=== PATIENT | female | born 1960 | race Two or more races ===

== ENCOUNTER 2017-11-23 19:16 | Inpatient (IN) | payer BC ==
[~2017-11-23] VITALS: Ht 157.5 cm; Wt 81.7 kg
[2017-11-23] MEDS ORDERED: SODIUM CHLORIDE FLUSH 10ML SYR IVF ONE (20:00)
[2017-11-23] MEDS ORDERED: OMNIPAQUE 350 MG/ML, 100ML BOTTLE ONE (20:00)
[2017-11-23 20:25] LABS: MICROSCOPIC AUTO
[2017-11-23 20:31] LABS: CULTURE INDICATED? YES
[2017-11-23 21:51] LABS: BASOPHILS # (AUTO) 0.03 x10^3/uL (0-0.1); BASOPHILS % (AUTO) 0 % (0-1); EOSINOPHILS # (AUTO) 0.11 x10^3/uL (0-0.4); EOSINOPHILS % (AUTO) 1 % (1-7); LYMPHOCYTES # (AUTO) 1.47 x10^3/uL (1-3.4); LYMPHOCYTES % (AUTO) 20 % (22-44); MD NO; MEAN CORPUSCULAR HEMOGLOBIN 28.7 pg (27.0-34.8); MEAN CORPUSCULAR HGB CONC 33.1 g/dL (32.4-35.8); MEAN CORPUSCULAR VOLUME 86.9 fL (80-100); MEAN PLATELET VOLUME 8.6 fL (7.4-10.4); MONOCYTES % (AUTO) 8 % (2-9); NEUTROPHILS # (AUTO) 5.29 x10^3/uL (1.8-6.8); NEUTROPHILS % (AUTO) 71 % (42-75); PLATELET COUNT 343 x10^3/uL (130-400); RED BLOOD COUNT 5.14 x10^6/uL (3.82-5.3); RED CELL DISTRIBUTION WIDTH 13.9 % (9.6-15.2)
[2017-11-23 22:00] LABS: ALBUMIN 3.2 g/dL (3.4-5.0); ANION GAP 8 mmol/L (5-15); CALCIUM 8.3 mg/dL (8.5-10.1); CHLORIDE 104 mmol/L (98-107)
[2017-11-23 22:04] LABS: ALANINE AMINOTRANSFERASE 27 U/L (12-78); ALKALINE PHOSPHATASE 107 U/L (45-117); BILIRUBIN,TOTAL 0.4 mg/dL (0.2-1.0); CREATININE 0.49 mg/dL (0.55-1.02); TOTAL PROTEIN 8.1 g/dL (6.4-8.2)
[2017-11-24 00:25] VITALS: BP 192/93
[2017-11-24] MEDS ORDERED: BISACODYL 10 MG SUPP PR PRN (00:30)
[2017-11-24] MEDS ORDERED: ACETAMINOPHEN 325 MG TABLET PO PRN (00:30)
[2017-11-24] MEDS ORDERED: ONDANSETRON ODT 4 MG PO PRN (00:30)
[2017-11-24] MEDS ORDERED: SIMETHICONE DROPS 40 MG/0.6 ML BOTTLE PO PRN (00:30)
[2017-11-24] MEDS ORDERED: TEMAZEPAM 15 MG CAPSULE PO PRN (00:30)
[2017-11-24] MEDS: ENALAPRILAT 1.25 MG/ML, 2ML IVPush PRN ×2 (00:57→08:50)
[2017-11-24 08:19] VITALS: BP 185/100
[2017-11-24] MEDS ORDERED: hydrALAzine 20 MG/ML, 1ML IV PRN (09:30)
[2017-11-24] MEDS: LISINOPRIL 10 MG TABLET PO SCH (10:36)
[2017-11-24 11:57] VITALS: BP 142/83
[2017-11-24 20:02] VITALS: BP 146/85
[2017-11-24] MEDS ORDERED: GOLYTELY 4,000ML ORAL.SOL PO ONE (21:30)
[2017-11-25 04:13] VITALS: BP 149/72
[2017-11-25 05:22] LABS: BASOPHILS # (AUTO) 0.02 x10^3/uL (0-0.1); BASOPHILS % (AUTO) 0 % (0-1); EOSINOPHILS # (AUTO) 0.03 x10^3/uL (0-0.4); EOSINOPHILS % (AUTO) 0 % (1-7); LYMPHOCYTES # (AUTO) 1.03 x10^3/uL (1-3.4); LYMPHOCYTES % (AUTO) 15 % (22-44); MD NO; MEAN CORPUSCULAR HEMOGLOBIN 28.6 pg (27.0-34.8); MEAN CORPUSCULAR HGB CONC 33.5 g/dL (32.4-35.8); MEAN CORPUSCULAR VOLUME 85.5 fL (80-100); MEAN PLATELET VOLUME 8.4 fL (7.4-10.4); MONOCYTES # (AUTO) 0.52 x10^3/uL (0.2-0.8); MONOCYTES % (AUTO) 7 % (2-9); NEUTROPHILS # (AUTO) 5.48 x10^3/uL (1.8-6.8); NEUTROPHILS % (AUTO) 77 % (42-75); PLATELET COUNT 308 x10^3/uL (130-400); RED BLOOD COUNT 4.94 x10^6/uL (3.82-5.3); RED CELL DISTRIBUTION WIDTH 14.2 % (9.6-15.2)
[2017-11-25 05:38] LABS: ANION GAP 7 mmol/L (5-15); CALCIUM 8.5 mg/dL (8.5-10.1); CHLORIDE 108 mmol/L (98-107)
[2017-11-25 05:46] LABS: CREATININE 0.36 mg/dL (0.55-1.02)
[2017-11-25 07:28] VITALS: BP 146/78
[2017-11-25] MEDS: LISINOPRIL 10 MG TABLET PO SCH (07:39)
[2017-11-25] MEDS ORDERED: FENTANYL PF 100 MCG/2ML IV PRN (08:30)
[2017-11-25] MEDS ORDERED: ACETAMINOPHEN 325 MG TABLET PO PRN (08:30)
[2017-11-25] MEDS ORDERED: hydrALAzine 20 MG/ML, 1ML IV PRN (08:30)
[2017-11-25] MEDS ORDERED: LABETALOL 5MG/ML, 20ML IV PRN (08:30)
[2017-11-25] MEDS ORDERED: ONDANSETRON 2MG/ML, 2ML IVPush PRN (08:30)
[2017-11-25] MEDS ORDERED: OXYcodone 5 MG/5 ML ORAL.SOL UDC PO PRN (08:30)
[2017-11-25] MEDS ORDERED: ALBUTEROL SULFATE 2.5 MG/3 ML NPPB PRN (08:30)
[2017-11-25] MEDS ORDERED: MEPERIDINE/PF 25MG/0.5ML IVPush PRN (08:30)
[2017-11-25] MEDS ORDERED: PROMETHAZINE 25 MG/ML, 1ML IV PRN (08:30)
[2017-11-25] MEDS ORDERED: MIDAZOLAM 1 MG/ML, 2ML ONE (11:30)
[2017-11-25] MEDS ORDERED: SUFentanil 50 MCG/ML, 1ML ONE (11:30)
[2017-11-25] MEDS ORDERED: PROPOFOL 10 MG/ML, 20ML ONE (11:31)
[2017-11-25] MEDS ORDERED: LIDOCAINE-MPF 2% ,5ML ONE (11:32)
[2017-11-25] MEDS ORDERED: KETAMINE 10 MG/ML, 20ML ONE (11:51)
[2017-11-25] MEDS ORDERED: PHENYLEPHRINE 10 MG/ML ONE (11:51)
[2017-11-25] MEDS ORDERED: GLYCOPYRROLATE 0.2MG/1ML, 5ML ONE ×2 (11:51→14:45)
[2017-11-25] MEDS ORDERED: ROCURONIUM 10MG/ML,5ML ONE (11:51)
[2017-11-25] MEDS ORDERED: MIDAZOLAM 1 MG/ML, 5ML ONE (11:51)
[2017-11-25] MEDS ORDERED: NEOSTIGMINE 1 MG/ML, 10ML ONE ×2 (11:51→14:45)
[2017-11-25] MEDS ORDERED: DEXAMETHASONE 4 MG/ML, 1ML ONE ×2 (12:22)
[2017-11-25] MEDS ORDERED: LABETALOL 5MG/ML, 20ML ONE (12:52)
[2017-11-25] MEDS ORDERED: HYDROmorphone 2 MG/ML, 1ML ONE (14:17)
[2017-11-25] MEDS ORDERED: FENTANYL PF 100 MCG/2ML ONE (14:17)
[2017-11-25] MEDS ORDERED: ONDANSETRON 2MG/ML, 2ML ONE ×2 (14:18)
[2017-11-25] MEDS: HYDROmorphone 1 MG/ML, 1ML IV PRN ×3 (15:20→15:40)
[2017-11-25] MEDS ORDERED: LORazepam 2 MG/ML, 1ML ONE (15:47)
[2017-11-25] MEDS ORDERED: hydrALAzine 20 MG/ML, 1ML ONE (15:59)
[2017-11-25] MEDS ORDERED: LORazepam 2 MG/ML, 1ML IVPush PRN (16:00)
[2017-11-25 17:00] VITALS: BP 159/82
[2017-11-25] MEDS ORDERED: ONDANSETRON 2MG/ML, 2ML IV PRN (18:00)
[2017-11-25] MEDS ORDERED: ACETAMINOPHEN 500 MG TABLET PO PRN (18:30)
[2017-11-25 19:17] VITALS: BP 151/82
[2017-11-25] MEDS: POTASSIUM CHLORIDE 20 MEQ in D5%-0.45% NACL 1,000 ML IV SCH (19:40)
[2017-11-25] MEDS: FAMOTIDINE 20 MG/2 ML IV SCH (19:51)
[2017-11-25] MEDS: ALBUMIN HUMAN 5% 500 ML IV SCH (20:16)
[2017-11-25] MEDS ORDERED: MORPHINE SULFATE 4 MG/ML, 1ML IV PRN (22:00)
[2017-11-26] MEDS: POTASSIUM CHLORIDE 20 MEQ in D5%-0.45% NACL 1,000 ML IV SCH ×5 (00:33→23:33)
[2017-11-26 01:53] VITALS: BP 147/78
[2017-11-26 05:17] LABS: BASOPHILS % (AUTO) 0 % (0-1); EOSINOPHILS % (AUTO) 0 % (1-7); LYMPHOCYTES # (AUTO) 0.78 x10^3/uL (1-3.4); LYMPHOCYTES % (AUTO) 7 % (22-44); MD NO; MEAN CORPUSCULAR HEMOGLOBIN 28.2 pg (27.0-34.8); MEAN CORPUSCULAR HGB CONC 32.4 g/dL (32.4-35.8); MEAN CORPUSCULAR VOLUME 87.2 fL (80-100); MEAN PLATELET VOLUME 8.7 fL (7.4-10.4); MONOCYTES % (AUTO) 13 % (2-9); NEUTROPHILS # (AUTO) 8.88 x10^3/uL (1.8-6.8); NEUTROPHILS % (AUTO) 80 % (42-75); PLATELET COUNT 252 x10^3/uL (130-400); RED BLOOD COUNT 4.57 x10^6/uL (3.82-5.3); RED CELL DISTRIBUTION WIDTH 14.3 % (9.6-15.2)
[2017-11-26 05:24] LABS: ANION GAP 7 mmol/L (5-15); CALCIUM 7.5 mg/dL (8.5-10.1); CHLORIDE 109 mmol/L (98-107)
[2017-11-26 05:27] LABS: CREATININE 0.42 mg/dL (0.55-1.02)
[2017-11-26 07:20] VITALS: BP 164/87
[2017-11-26] MEDS: LISINOPRIL 10 MG TABLET PO SCH (08:08)
[2017-11-26] MEDS: ALBUMIN HUMAN 5% 500 ML IV SCH ×2 (08:16→21:00)
[2017-11-26] MEDS: FAMOTIDINE 20 MG/2 ML IV SCH ×2 (08:18→20:08)
[2017-11-26] MEDS: ENALAPRILAT 1.25 MG/ML, 2ML IVPush PRN (08:18)
[2017-11-26 12:58] VITALS: BP 158/90
[2017-11-26 20:01] VITALS: BP 139/68
[2017-11-27 01:23] VITALS: BP 126/62
[2017-11-27 04:29] LABS: BASOPHILS # (AUTO) 0.04 x10^3/uL (0-0.1); BASOPHILS % (AUTO) 0 % (0-1); EOSINOPHILS # (AUTO) 0.02 x10^3/uL (0-0.4); EOSINOPHILS % (AUTO) 0 % (1-7); LYMPHOCYTES # (AUTO) 0.96 x10^3/uL (1-3.4); LYMPHOCYTES % (AUTO) 8 % (22-44); MD NO; MEAN CORPUSCULAR HEMOGLOBIN 28.5 pg (27.0-34.8); MEAN CORPUSCULAR HGB CONC 32.8 g/dL (32.4-35.8); MEAN CORPUSCULAR VOLUME 86.9 fL (80-100); MEAN PLATELET VOLUME 8.2 fL (7.4-10.4); MONOCYTES # (AUTO) 1.25 x10^3/uL (0.2-0.8); MONOCYTES % (AUTO) 10 % (2-9); NEUTROPHILS # (AUTO) 9.73 x10^3/uL (1.8-6.8); NEUTROPHILS % (AUTO) 81 % (42-75); PLATELET COUNT 248 x10^3/uL (130-400); RED BLOOD COUNT 4.27 x10^6/uL (3.82-5.3); RED CELL DISTRIBUTION WIDTH 14.4 % (9.6-15.2)
[2017-11-27] MEDS: POTASSIUM CHLORIDE 20 MEQ in D5%-0.45% NACL 1,000 ML IV SCH (04:31)
[2017-11-27] MEDS: ALBUMIN HUMAN 5% 500 ML IV SCH ×2 (04:34→14:00)
[2017-11-27 04:44] LABS: CHLORIDE 109 mmol/L (98-107)
[2017-11-27 04:52] LABS: ANION GAP 7 mmol/L (5-15); CALCIUM 7.7 mg/dL (8.5-10.1); CREATININE 0.28 mg/dL (0.55-1.02)
[2017-11-27 07:02] VITALS: BP 117/74
[2017-11-27] MEDS: LISINOPRIL 10 MG TABLET PO SCH (09:17)
[2017-11-27] MEDS: FAMOTIDINE 20 MG/2 ML IV SCH ×2 (09:17→19:57)
[2017-11-27] MEDS: D5%-0.45NACL+KCL 20MEQ 1,000 ML IV SCH ×2 (09:17→20:19)
[2017-11-27 13:37] VITALS: BP 122/74
[2017-11-27 19:42] VITALS: BP 128/80
[2017-11-28 01:39] VITALS: BP 153/77
[2017-11-28 04:36] LABS: BASOPHILS # (AUTO) 0.05 x10^3/uL (0-0.1); BASOPHILS % (AUTO) 0 % (0-1); EOSINOPHILS # (AUTO) 0.03 x10^3/uL (0-0.4); EOSINOPHILS % (AUTO) 0 % (1-7); LYMPHOCYTES # (AUTO) 1.17 x10^3/uL (1-3.4); LYMPHOCYTES % (AUTO) 11 % (22-44); MD NO; MEAN CORPUSCULAR HEMOGLOBIN 28.7 pg (27.0-34.8); MEAN CORPUSCULAR HGB CONC 33.4 g/dL (32.4-35.8); MEAN CORPUSCULAR VOLUME 85.8 fL (80-100); MEAN PLATELET VOLUME 8.6 fL (7.4-10.4); MONOCYTES # (AUTO) 0.92 x10^3/uL (0.2-0.8); MONOCYTES % (AUTO) 9 % (2-9); NEUTROPHILS # (AUTO) 8.64 x10^3/uL (1.8-6.8); NEUTROPHILS % (AUTO) 80 % (42-75); PLATELET COUNT 236 x10^3/uL (130-400); RED BLOOD COUNT 3.85 x10^6/uL (3.82-5.3); RED CELL DISTRIBUTION WIDTH 14.3 % (9.6-15.2)
[2017-11-28 04:47] LABS: CHLORIDE 107 mmol/L (98-107)
[2017-11-28 04:52] LABS: ALANINE AMINOTRANSFERASE 14 U/L (12-78); ALBUMIN 2.7 g/dL (3.4-5.0); ALKALINE PHOSPHATASE 62 U/L (45-117); ANION GAP 8 mmol/L (5-15); BILIRUBIN,TOTAL 0.7 mg/dL (0.2-1.0); CREATININE 0.23 mg/dL (0.55-1.02); TOTAL PROTEIN 5.8 g/dL (6.4-8.2)
[2017-11-28] MEDS: D5%-0.45NACL+KCL 20MEQ 1,000 ML IV SCH ×2 (06:19→15:34)
[2017-11-28] MEDS: FAMOTIDINE 20 MG/2 ML IV SCH ×2 (08:17→19:54)
[2017-11-28 08:18] VITALS: BP 170/86
[2017-11-28] MEDS: LISINOPRIL 10 MG TABLET PO SCH (08:18)
[2017-11-28 13:37] VITALS: BP 164/81
[2017-11-28 19:44] VITALS: BP 156/78
[2017-11-29] MEDS: D5%-0.45NACL+KCL 20MEQ 1,000 ML IV SCH ×3 (01:15→20:23)
[2017-11-29 01:16] VITALS: BP 165/85
[2017-11-29 04:38] LABS: BASOPHILS # (AUTO) 0.04 x10^3/uL (0-0.1); BASOPHILS % (AUTO) 0 % (0-1); EOSINOPHILS # (AUTO) 0.07 x10^3/uL (0-0.4); EOSINOPHILS % (AUTO) 1 % (1-7); LYMPHOCYTES % (AUTO) 8 % (22-44); MD NO; MEAN CORPUSCULAR HEMOGLOBIN 28.2 pg (27.0-34.8); MEAN CORPUSCULAR HGB CONC 32.9 g/dL (32.4-35.8); MEAN CORPUSCULAR VOLUME 85.7 fL (80-100); MEAN PLATELET VOLUME 8.5 fL (7.4-10.4); MONOCYTES # (AUTO) 0.81 x10^3/uL (0.2-0.8); MONOCYTES % (AUTO) 8 % (2-9); NEUTROPHILS % (AUTO) 83 % (42-75); PLATELET COUNT 274 x10^3/uL (130-400); RED BLOOD COUNT 4.24 x10^6/uL (3.82-5.3); RED CELL DISTRIBUTION WIDTH 14.5 % (9.6-15.2)
[2017-11-29 04:52] LABS: ANION GAP 5 mmol/L (5-15); CHLORIDE 105 mmol/L (98-107)
[2017-11-29 04:53] LABS: CREATININE 0.21 mg/dL (0.55-1.02)
[2017-11-29 07:55] VITALS: BP 160/93
[2017-11-29] MEDS: LISINOPRIL 10 MG TABLET PO SCH (09:18)
[2017-11-29] MEDS: FAMOTIDINE 20 MG/2 ML IV SCH ×2 (09:19→20:23)
[2017-11-29 16:12] VITALS: BP 158/90
[2017-11-29 19:29] VITALS: BP 156/88
[2017-11-30 01:43] VITALS: BP 152/89
[2017-11-30 05:06] LABS: ANION GAP 8 mmol/L (5-15); CALCIUM 7.9 mg/dL (8.5-10.1); CHLORIDE 103 mmol/L (98-107); CREATININE 0.23 mg/dL (0.55-1.02)
[2017-11-30 05:12] LABS: BASOPHILS # (AUTO) 0.01 x10^3/uL (0-0.1); BASOPHILS % (AUTO) 0 % (0-1); EOSINOPHILS # (AUTO) 0.06 x10^3/uL (0-0.4); EOSINOPHILS % (AUTO) 1 % (1-7); LYMPHOCYTES % (AUTO) 8 % (22-44); MD NO; MEAN CORPUSCULAR HEMOGLOBIN 28.5 pg (27.0-34.8); MEAN CORPUSCULAR HGB CONC 33.4 g/dL (32.4-35.8); MEAN CORPUSCULAR VOLUME 85.5 fL (80-100); MEAN PLATELET VOLUME 8.2 fL (7.4-10.4); MONOCYTES # (AUTO) 0.77 x10^3/uL (0.2-0.8); MONOCYTES % (AUTO) 9 % (2-9); NEUTROPHILS # (AUTO) 7.53 x10^3/uL (1.8-6.8); NEUTROPHILS % (AUTO) 83 % (42-75); PLATELET COUNT 275 x10^3/uL (130-400); RED BLOOD COUNT 4.15 x10^6/uL (3.82-5.3); RED CELL DISTRIBUTION WIDTH 14.3 % (9.6-15.2)
[2017-11-30] MEDS: D5%-0.45NACL+KCL 20MEQ 1,000 ML IV SCH ×2 (06:26→17:39)
[2017-11-30 07:50] VITALS: BP 176/93
[2017-11-30] MEDS: LISINOPRIL 10 MG TABLET PO SCH (09:41)
[2017-11-30] MEDS: FAMOTIDINE 20 MG/2 ML IV SCH ×2 (09:41→19:50)
[2017-11-30 13:05] VITALS: BP 150/91
[2017-11-30 19:09] VITALS: BP 146/85
[2017-12-01 01:52] VITALS: BP 153/87
[2017-12-01] MEDS: D5%-0.45NACL+KCL 20MEQ 1,000 ML IV SCH ×2 (03:11→14:43)
[2017-12-01 08:20] VITALS: BP 163/93
[2017-12-01] MEDS: FAMOTIDINE 20 MG/2 ML IV SCH ×2 (08:23→20:02)
[2017-12-01] MEDS: LISINOPRIL 10 MG TABLET PO SCH (08:23)
[2017-12-01 15:23] VITALS: BP 167/92
[2017-12-01 20:00] VITALS: BP 163/77
[2017-12-02] MEDS: D5%-0.45NACL+KCL 20MEQ 1,000 ML IV SCH ×3 (00:14→20:00)
[2017-12-02 02:00] VITALS: BP 171/85
[2017-12-02 07:40] VITALS: BP 150/79
[2017-12-02] MEDS: LISINOPRIL 10 MG TABLET PO SCH ×2 (08:51→13:10)
[2017-12-02] MEDS: FAMOTIDINE 20 MG/2 ML IV SCH ×2 (08:51→20:03)
[2017-12-02] MEDS ORDERED: OXYcodone/APAP 5/325MG TABLET PO PRN (12:00)
[2017-12-02] MEDS ORDERED: IBUPROFEN 200 MG TABLET PO PRN (12:00)
[2017-12-02 12:45] VITALS: BP 154/93
[2017-12-02] MEDS: CALCIUM CARBONATE 500 MG TAB.CHEW PO PRN ×2 (15:54→18:19)
[2017-12-02] MEDS: CEPHALEXIN 500 MG CAPSULE PO SCH ×2 (15:55→20:03)
[2017-12-02 19:51] VITALS: BP 147/88
[2017-12-03 04:19] VITALS: BP 152/91
[2017-12-03] MEDS: D5%-0.45NACL+KCL 20MEQ 1,000 ML IV SCH (06:00)
[2017-12-03] MEDS: CEPHALEXIN 500 MG CAPSULE PO SCH ×3 (06:40→17:15)
[2017-12-03] MEDS: LISINOPRIL 10 MG TABLET PO SCH (08:26)
[2017-12-03] MEDS: FAMOTIDINE 20 MG/2 ML IV SCH (08:26)
[2017-12-03 08:36] VITALS: BP 164/94
[2017-12-03] MEDS ORDERED: OXYC1TAB7 PO (15:05)
[2017-12-03] MEDS ORDERED: LISI-167 PO (15:05)
[2017-12-03] MEDS ORDERED: IBUP-1484 PO (15:05)
[2017-12-03] MEDS ORDERED: CALC200T24 PO (15:05)
[2017-12-03] MEDS ORDERED: CEPH-376 PO (15:05)
== END 2017-12-03 18:08 | disposition home or self-care (01) | DRG 330 ==
LOC: ED 22:02 → EDIP 23:32 → 3NW 11-24 00:25
PROVIDERS: ADMIT Hospitalist; ATTEND Hospitalist
PROC: 0UT00ZZ Resection of Right Ovary, Open Approach (ICD-10-PCS; 2017-11-25)
PROC: 0UT50ZZ Resection of Right Fallopian Tube, Open Approach (ICD-10-PCS; 2017-11-25)
PROC: 0UT90ZZ Resection of Uterus, Open Approach (ICD-10-PCS; 2017-11-25)
PROC: 0DBU0ZZ Excision of Omentum, Open Approach (ICD-10-PCS; 2017-11-25)
PROC: 0DTF0ZZ Resection of Right Large Intestine, Open Approach (ICD-10-PCS; principal; 2017-11-25 12:00)
DX: C18.9 Malignant neoplasm of colon, unspecified (principal); R18.8 Other ascites; K56.7 Ileus, unspecified; J98.11 Atelectasis; I10 Essential (primary) hypertension; D72.829 Elevated white blood cell count, unspecified; I16.0 Hypertensive urgency; K21.9 Gastro-esophageal reflux disease without esophagitis; Z93.3 Colostomy status; K66.0 Peritoneal adhesions (postprocedural) (postinfection); N83.9 Noninflammatory disorder of ovary, fallopian tube and broad ligament, unspecified
CPT/HCPCS: 36415; 70450; 71250; 74018; 74177; 76856; 80048; 80053; 81001; 82378; 83690; 83735; 84100; 85025; 86304; 86850; 86900; 86923; 87086; 88307; 88341; 88342; 93005; 99285; J1100; J1170; J2250; J2270; J2405; J2704; J2710; J3480; J3490; P9045; Q9967; C1765; G0461; J0360; J2060; J2370; S0028